=== PATIENT | male | born 2000 | race Caucasian/White ===

== ENCOUNTER 2025-02-11 10:50 | Emergency (ER) | payer OTHER ==
[2025-02-11] MEDS: Diphtheria,Pertussis(Acell),Tetanus Vaccine 0.5 ML Syringe IM ONE (12:19)
== END 2025-02-11 12:27 | disposition home or self-care (01) ==
LOC: JP.ED 10:50
DX: S50.12XA Contusion of left forearm, initial encounter (principal); Z23 Encounter for immunization; W26.8XXA Contact with other sharp object(s), not elsewhere classified, initial encounter; Y99.0 Civilian activity done for income or pay
CPT/HCPCS: 73090-26-LT; 73090-LT; 90471; 90715; 99282; 99283-25